=== PATIENT | male | born 1985 | race Caucasian/White ===

== ENCOUNTER 2021-01-31 17:40 | Emergency (ER) | payer MEDICAID ==
[~2021-01-31] VITALS: Ht 172.7 cm; Wt 76.2 kg
--- NOTE | 2021-01-31 17:40 | NUR ---
PT BIBA AND PLACED IN BED 10.
[2021-01-31 17:50] VITALS: BP 121/86
--- NOTE | 2021-01-31 17:57 | NUR ---
Pt taken to ER bed 10.
--- NOTE | 2021-01-31 18:12 | NUR ---
remote sensing technologist at pt bedside.
[2021-01-31] MEDS ORDERED: NACL 0.9% 1,000 ML IV ONE (18:15)
--- NOTE | 2021-01-31 18:15 | NUR ---
35 Y/O MALE BIBA ALOC, PT WAS FOUND IN 04/06. PT STATED HE IS HOMELESS. GCS 14. PMH: UNKNOWN NKA
[2021-01-31 18:23] LABS: BASOPHILS # (AUTO) 0.1 K/uL (0.00-0.22); EOSINOPHILS # (AUTO) 0.1 K/uL (0-0.4); EOSINOPHILS % (AUTO) 1.8 % (0.0-4.0); HEMOGLOBIN 12.4 g/dL (12.0-18.0); LYMPHOCYTES # (AUTO) 3.7 K/uL (2.0-11.5); LYMPHOCYTES % (AUTO) 60.1 % (20.5-51.1); MEAN CORPUSCULAR HEMOGLOBIN 28 pg (27-31); MEAN CORPUSCULAR HGB CONC 34 g/dL (33-37); MEAN CORPUSCULAR VOLUME 83.2 fL (80-94); MONOCYTES # (AUTO) 0.5 K/uL (0.8-1.0); MONOCYTES % (AUTO) 7.3 % (1.7-9.3); NEUTROPHILS # (AUTO) 1.8 K/uL (1.8-7.7); NEUTROPHILS % (AUTO) 29.8 % (42.2-75.2); PLATELET COUNT (AUTO) 194 K/uL (140-450); RED BLOOD CELL COUNT(AUTO) 4.45 MIL/uL (4.20-6.10); RED CELL DISTRIBUTION WIDTH 17.8 % (11.6-13.7); WHITE BLOOD COUNT (AUTO) 6.2 K/uL (4.8-10.8)
--- NOTE | 2021-01-31 18:34 | NUR ---
Pt taken to CT via [facility].
[2021-01-31 18:39] LABS: ALBUMIN 3.3 g/dL (3.4-5.0); ASPARTATE AMINOTRANSFERASE 198 U/L (15-37); CARBON DIOXIDE 28.8 mmol/L (21-32); CHLORIDE 105 mmol/L (98-107); CREATININE 0.8 mg/dL (0.6-1.3); GFR ARICAN-AMERICAN 143 mL/min (>90); GLUCOSE 78 mg/dL (74-106); SODIUM SERUM 142 mmol/L (136-145); TOTAL BILIRUBIN 0.4 mg/dL (0.0-1.0); UREA NITROGEN, BLOOD 5 mg/dL (7-18)
[2021-01-31 18:40] LABS: ACETAMINOPHEN < 0.5 ug/ml (10-30); POTASSIUM 2.8 mmol/L (3.5-5.1); SALICYLATE < 2.8 mg/dL (2.8-20.0)
--- NOTE | 2021-01-31 18:42 | NUR ---
Pt brought back from CT via [facility].
--- NOTE | 2021-01-31 18:57 | NUR ---
Pt walked out of facility with IV intact, security called. Pt escorted back to ER.
[2021-01-31] MEDS ORDERED: POTASSIUM CHLORIDE 10 MEQ TABER PO ONE (19:00)
[2021-01-31] MEDS ORDERED: THIAMINE 200 MG/2 ML VIAL IM ONE (19:00)
[2021-01-31] MEDS ORDERED: FOLIC ACID 1 MG TAB PO ONE (19:00)
[2021-01-31 19:06] LABS: CKMB RELATIVE INDEX 2.7 (0.0-2.5); CREATINE KINASE MB 19.3 ng/mL (0-3.6)
--- NOTE | 2021-01-31 19:07 | NUR ---
Dr. Almaguer made aware pt attempted to elope, brought back to ER. States to attempt to give PO meds.
--- NOTE | 2021-01-31 19:13 | NUR ---
Pt eloped from facility at this time, made aware.
[2021-01-31 19:18] VITALS: BP 121/86
--- NOTE | 2021-01-31 19:19 | NUR ---
PATIENT ELOPED FROM FACILITY. DISCHARGE INSTRUCTIONS NOT GIVEN TO PATIENT. DR. marks NOTIFIED.
[2021-02-01] MEDS ORDERED: MULTIVITAMIN 1 TAB PO SCH (09:00)
== END 2021-01-31 19:19 | disposition home or self-care (01) ==
LOC: MED 17:40
DX: F10.19 Alcohol abuse with unspecified alcohol-induced disorder (principal); Z59.0 Homelessness; Y90.8 Blood alcohol level of 240 mg/100 ml or more
CPT/HCPCS: 36415; 70450; 71045; 80053; 82550; 82553; 84484; 85025; 93005; 99285; G0480; G0482; J7030

== ENCOUNTER 2021-05-14 10:47 | Emergency (ER) | payer MEDICAID, OTHER ==
[~2021-05-14] VITALS: Ht 175.3 cm; Wt 77.1 kg
[2021-05-14 10:50] VITALS: BP 136/96
--- NOTE | 2021-05-14 10:50 | NUR ---
Patient ambulated from [facility] to restroom to change into gown. Pt ambulated back onto bed 11 with steady/even gait.
--- NOTE | 2021-05-14 10:55 | NUR ---
35 YO MALE BIBA FOR ALOC AND WAS DIAPHORETIC. PT IS A&OX2 NAME AND PLACE, GCS 14. PT DRANK APPROX 6 BEERS TODAY AND STATES HE DRINKS ALCOHOL (BEER) DAILY BUT DOES NOT DISCLOSE HOW MANY HE DRINKS DAILY. PT HAS ETOH HX. PT DENIES CHEST PAIN, SOB, FEVER, CHILLS, N/V/D. PERRLA 3MM, ROM AND SENSATION INTACT. SKIN INTACT, NO SWELLING NOTED TO EXT. BS ACTIVE X4Q, STATES PAIN DURING PALPATION TO RIGHT SIDE, 0/10 AT REST. RR EVEN AND UNLABORED. PT PLACED ON MONITOR, SIDE RAILS UP AND BED IN LOW POSITION FOR SAFETY. PT IS POOR HISTORIAN, PROVIDING DIFFERENT ANSWERS TO QUESTIONS WHEN ASKED AGAIN. PMH DENIES ALLERGIES: DENIES
--- NOTE | 2021-05-14 11:25 | NUR ---
Dr. English is evaluating patient at bedside.
--- NOTE | 2021-05-14 11:37 | NUR ---
Lab at bedside
[2021-05-14 11:48] LABS: BASOPHILS # (AUTO) 0.1 K/uL (0.00-0.22); BASOPHILS % (AUTO) 0.9 % (0.0-2.0); EOSINOPHILS # (AUTO) 0.1 K/uL (0-0.4); EOSINOPHILS % (AUTO) 1.8 % (0.0-4.0); HEMATOCRIT 34.5 % (36-52); HEMOGLOBIN 11.4 g/dL (12.0-18.0); LYMPHOCYTES # (AUTO) 2.7 K/uL (2.0-11.5); LYMPHOCYTES % (AUTO) 43.4 % (20.5-51.1); MEAN CORPUSCULAR HEMOGLOBIN 26 pg (27-31); MEAN CORPUSCULAR HGB CONC 33 g/dL (33-37); MEAN CORPUSCULAR VOLUME 78.8 fL (80-94); MONOCYTES # (AUTO) 0.6 K/uL (0.8-1.0); NEUTROPHILS # (AUTO) 2.8 K/uL (1.8-7.7); NEUTROPHILS % (AUTO) 44.9 % (42.2-75.2); PLATELET COUNT (AUTO) 284 K/uL (140-450); RED BLOOD CELL COUNT(AUTO) 4.37 MIL/uL (4.20-6.10); RED CELL DISTRIBUTION WIDTH 17.6 % (11.6-13.7); WHITE BLOOD COUNT (AUTO) 6.1 K/uL (4.8-10.8)
[2021-05-14 12:03] LABS: ALBUMIN 3.4 g/dL (3.4-5.0); ANION GAP 13.1 (8-16); CARBON DIOXIDE 24.2 mmol/L (21-32); CREATININE 0.8 mg/dL (0.6-1.3); POTASSIUM 3.3 mmol/L (3.5-5.1); TOTAL BILIRUBIN 0.4 mg/dL (0.0-1.0)
--- NOTE | 2021-05-14 12:04 | NUR ---
Water cup and juices provided. 2nd void attempt; patient states he is unable to void at this time. Addendum: 05/14/21 at [address] English made aware
--- NOTE | 2021-05-14 12:14 | NUR ---
Patient does not wish to proceed with medical care recommended by DR BECERRA. Patient given information related to possible complications, up to and including , which could occur as a result of leaving hospital at this time. Patient verbalizes understanding of risks involved leaving against medical advice. Patient has signed AMA form. DR BECERRA PROVIDED D/C PAPERS
--- NOTE | 2021-05-14 12:14 | NUR ---
Patient discharged with v/s stable. Written and verbal after care instructions given and explained. Patient verbalized understanding. Ambulatory with steady gait. All questions addressed prior to discharge. Advised to follow up with PMD. PT LEFT AMA, PROVIDED WITH DC INTRUCTIONS BY DR BECERRA.
== END 2021-05-14 12:14 | disposition home or self-care (01) ==
LOC: MED 10:47
DX: F10.129 Alcohol abuse with intoxication, unspecified (principal)
CPT/HCPCS: 36415; 80053; 85025; 93005; 99284; G0482

== ENCOUNTER 2021-06-10 13:24 | Emergency (ER) | payer OTHER ==
[~2021-06-10] VITALS: Ht 165.1 cm; Wt 68.0 kg
[2021-06-10 13:26] VITALS: BP 121/86
--- NOTE | 2021-06-10 13:26 | NUR ---
AMBULATORY FROM EMS GURNEY TO WHEELCHAIR, PENDING BED IN ED.
--- NOTE | 2021-06-10 13:38 | NUR ---
PATIENT LEFT WITHOUT BEING SEEN BY DR. MIXON. NO FURTHER CARE PROVIDED FOR PATIENT.
--- NOTE | 2021-06-10 13:38 | NUR ---
PT AMBULATED WITHOUT ASSIST FROM WHEELCHAIR TO PARKING LOT.
== END 2021-06-10 13:38 | disposition left against medical advice (07) ==
LOC: MED 13:24
DX: F10.129 Alcohol abuse with intoxication, unspecified (principal); Z53.21 Procedure and treatment not carried out due to patient leaving prior to being seen by health care provider; Y90.9 Presence of alcohol in blood, level not specified